=== PATIENT | male | born 1955 | race Two or more races ===

== ENCOUNTER 2021-09-25 14:20 | Outpatient (CLI) | payer OTHER | END 2021-09-25 23:59 | disposition home or self-care (01) | LOC: LAB 14:20 | PROVIDERS: ATTEND Specialist | DX: Z01.812 Encounter for preprocedural laboratory examination (principal); Z20.822 Contact with and (suspected) exposure to COVID-19 | CPT/HCPCS: C9803; U0003 ==

== ENCOUNTER 2021-10-02 05:29 | Day surgery (SDC) | payer OTHER ==
[~2021-10-02] VITALS: Ht 160 cm; Wt 66.2 kg
[2021-10-02] MEDS ORDERED: FAMOTIDINE/PF INJ 20 MG/2 ML VIAL IV ONE (07:00)
[2021-10-02] MEDS ORDERED: FENTANYL PF 100MCG/2ML AMPUL ONE (07:00)
[2021-10-02] MEDS ORDERED: MIDAZOLAM HCL 2 MG/2ML VIAL ONE (07:00)
[2021-10-02] MEDS ORDERED: BUPIVACAINE 0.25% 75 MG/30 ML VIAL ONE (07:40)
[2021-10-02] MEDS ORDERED: PHEN100C4 PO (07:51)
[2021-10-02] MEDS ORDERED: ALEN70TA3 GT (07:51)
[2021-10-02] MEDS ORDERED: HYDROCODONE/APAP 5/325MG TABLET PO PRN (10:30)
[2021-10-02 11:00] VITALS: BP 100/77
[2021-10-02] MEDS: HYDROCODONE/APAP 5/325MG TABLET PO PRN (11:21)
== END 2021-10-02 16:00 | disposition home or self-care (01) ==
LOC: DS 05:29 → UNDOADMIN 05:30 → MED 05:30 → UNDODISIN 12:10 → DS 16:00
PROVIDERS: ATTEND Specialist
DX: G56.01 Carpal tunnel syndrome, right upper limb (principal); Z79.82 Long term (current) use of aspirin; Z79.899 Other long term (current) drug therapy
CPT/HCPCS: 64721; 82962; 87081; A6402; J2250; J3010; J3490 ×2; G0378; J0690; J2405; J2704; J2765; J7030